=== PATIENT | male | born 1965 | race Caucasian/White ===

== ENCOUNTER 2021-06-11 11:03 | Inpatient (IN) | payer MEDICAID ==
[~2021-06-11] VITALS: Ht 182.9 cm; Wt 64.3 kg
[2021-06-11] MEDS ORDERED: DIVA125T2 PO (11:38)
[2021-06-11] MEDS ORDERED: FLUO20CA36 PO (11:39)
[2021-06-11 12:17] LABS: BASOPHILS % (AUTO) 0.4 % (0.0-2.0); EOSINOPHILS % (AUTO) 0 % (1.0-6.0); HEMOGLOBIN 13.4 g/dL (13.5-17.5); LYMPHOCYTES % (AUTO) 30.3 % (22.0-44.0); MEAN CORPUSCULAR HEMOGLOBIN 30.6 pg (26.0-34.0); MEAN CORPUSCULAR HGB CONC 33.6 G/dL (31.0-37.0); MEAN CORPUSCULAR VOLUME 91 fL (80-100); MONOCYTES # (AUTO) 0.6 K/uL (0.1-1.0); NEUTROPHILS # (AUTO) 4.1 K/uL (1.8-7.7); NEUTROPHILS % (AUTO) 60.3 % (40.0-70.0); PLATELET COUNT (AUTO) 214 K/uL (150-450); RED BLOOD CELL COUNT(AUTO) 4.39 MIL/uL (4.50-5.90); RED CELL DISTRIBUTION WIDTH 14.6 % (11.5-14.5)
[2021-06-11 12:25] LABS: ANION GAP 9 mmol/L (8-16); CALCIUM, TOTAL 8.7 mg/dL (8.8-10.5); CARBON DIOXIDE 30 mmol/L (22-29); CHLORIDE 100 mmol/L (98-107); CREATININE 0.82 mg/dL (0.60-1.30); GLOMERULAR FILTR. RATE CALC > 60 mL/min (>60); GLUCOSE,RANDOM 84 mg/dL (70-110); POTASSIUM 4.1 mmol/L (3.5-5.1); SODIUM SERUM 139 mmol/L (136-145); UREA NITROGEN, BLOOD 19 mg/dL (7-18)
[2021-06-11 12:32] LABS: ACETAMINOPHEN < 2 mcg/mL (10-30); ALANINE AMINOTRANSFERASE 30 U/L (12-78); ALBUMIN 3.7 g/dL (3.4-5.0); ALKALINE PHOSPHATASE 50 U/L (46-116); ASPARTATE AMINOTRANSFERASE 32 U/L (15-37); BILIRUBIN,TOTAL 0.4 mg/dL (0.1-1.0); TOTAL PROTEIN, SERUM 8.2 g/dL (6.4-8.2)
[2021-06-11 12:35] LABS: SALICYLATE 0.7 mg/dL (2.8-20.0)
[2021-06-11] MEDS ORDERED: MAG HYDROX/AL HYDROX/SIMETH ES 30 ML SUSPENSION UDCUP PO PRN (13:00)
[2021-06-11] MEDS ORDERED: HydrOXYzine PAMOATE 50 MG CAPSULE PO PRN (13:00)
[2021-06-11] MEDS ORDERED: ACETAMINOPHEN 325 MG TABLET PO PRN (13:00)
[2021-06-11] MEDS ORDERED: LORazepam 2 MG TABLET PO PRN (13:00)
[2021-06-11] MEDS ORDERED: CYANOCOBALAMIN 1,000 MCG/ML VIAL IM ONE ×2 (13:00→21:15)
[2021-06-11] MEDS ORDERED: GuaiFENesin/D-METHORPHAN [SUGAR-FREE] 200-20MG/10 ML SYRUP UDCUP PO PRN (13:00)
[2021-06-11] MEDS ORDERED: LOPERAMIDE HCL 2 MG CAPSULE PO PRN (13:00)
[2021-06-11] MEDS ORDERED: ZOLPIDEM TARTRATE 10 MG TABLET PO PRN (13:00)
[2021-06-11] MEDS ORDERED: MAGNESIUM HYDROXIDE SUSPENSION 30 ML UDCUP PO PRN (13:00)
[2021-06-11] MEDS ORDERED: OLANZapine 5 MG RAPDIS TABLET PO PRN (13:00)
[2021-06-11] MEDS ORDERED: PROMETHAZINE HCL 25 MG TABLET PO PRN (13:00)
[2021-06-11] MEDS ORDERED: TUBERCULIN, PURIFIED PROTEIN DERIVATIVE 5 TU/0.1 ML SYRINGE ID ONE (13:00)
[2021-06-11 14:23] LABS: COVID AG,FIA SOURCE NASOPHARYNGEAL
[2021-06-11] MEDS ORDERED: DIAZEPAM 10 MG TABLET PO PRN (17:15)
[2021-06-11] MEDS: MELATONIN 5 MG TABLET PO SCH (21:00)
[2021-06-11] MEDS: THIAMINE 100 MG TABLET PO SCH (21:00)
[2021-06-11] MEDS ORDERED: OLANZapine 5 MG RAPDIS TABLET PO SCH (21:00)
[2021-06-12] VITALS (10 sets, daily range): BP systolic 101–148; BP diastolic 60–81
[2021-06-12] MEDS ORDERED: DIAZEPAM 10 MG TABLET PO PRN (07:00)
[2021-06-12 07:29] LABS: CHOL/HDL RATIO 3.7 (4.2-7.3); FREE T4 (FREE THYROXINE) 1.08 ng/dL (0.76-1.46); THYROID STIMULATING HORMONE 0.77 uIU/mL (0.36-3.74)
[2021-06-12] MEDS ORDERED: BuPROPion HCL XL 150 MG ER TABLET PO SCH (09:00)
[2021-06-12] MEDS: FOLIC ACID 1 MG TABLET PO SCH (09:00)
[2021-06-12] MEDS: THIAMINE 100 MG TABLET PO SCH ×2 (09:00→17:04)
[2021-06-12] MEDS: NALTREXONE HCL 50 MG TABLET PO SCH (09:00)
[2021-06-12] MEDS: OMEGA-3/DHA/EPA/FISH OIL 1,000 MG CAPSULE PO SCH (09:00)
[2021-06-12] MEDS: MULTIVITAMINS WITH MINERALS, THERAPEUTIC TABLET PO SCH (09:00)
[2021-06-12] MEDS: DIAZEPAM 10 MG TABLET PO SCH ×3 (09:21→17:05)
[2021-06-12] MEDS: FLUoxetine HCL 20 MG CAPSULE PO SCH (09:22)
[2021-06-12] MEDS: MELATONIN 5 MG TABLET PO SCH (20:58)
[2021-06-12] MEDS ORDERED: LURASIDONE HCL 20 MG TABLET PO PRN (21:00)
[2021-06-12] MEDS ORDERED: DIVALPROEX SODIUM 500 MG ER TABLET PO SCH (21:00)
[2021-06-13] MEDS ORDERED: LURASIDONE HCL 40 MG TABLET PO SCH (07:30)
[2021-06-13] MEDS: MULTIVITAMINS WITH MINERALS, THERAPEUTIC TABLET PO SCH (09:00)
[2021-06-13] MEDS: OMEGA-3/DHA/EPA/FISH OIL 1,000 MG CAPSULE PO SCH (09:00)
[2021-06-13] MEDS: FLUoxetine HCL 20 MG CAPSULE PO SCH (09:00)
[2021-06-13] MEDS: THIAMINE 100 MG TABLET PO SCH ×2 (09:00→17:19)
[2021-06-13] MEDS: FOLIC ACID 1 MG TABLET PO SCH (09:00)
[2021-06-13] MEDS: NALTREXONE HCL 50 MG TABLET PO SCH (09:00)
[2021-06-13] MEDS: MELATONIN 5 MG TABLET PO SCH (20:59)
[2021-06-13] MEDS ORDERED: DIVALPROEX SODIUM 500 MG ER TABLET PO SCH (21:00)
[2021-06-14] MEDS ORDERED: DIAZEPAM 5 MG TABLET PO PRN (07:00)
[2021-06-14] MEDS ORDERED: LURASIDONE HCL 80 MG TABLET PO SCH ×2 (07:30→21:00)
[2021-06-14] MEDS ORDERED: DIAZEPAM 5 MG TABLET PO SCH (09:00)
[2021-06-14] MEDS: FOLIC ACID 1 MG TABLET PO SCH (09:00)
[2021-06-14] MEDS: FLUoxetine HCL 20 MG CAPSULE PO SCH (09:00)
[2021-06-14] MEDS: NALTREXONE HCL 50 MG TABLET PO SCH (09:00)
[2021-06-14] MEDS: THIAMINE 100 MG TABLET PO SCH ×2 (09:00→17:20)
[2021-06-14] MEDS ORDERED: DIVALPROEX SODIUM 500 MG ER TABLET PO SCH (09:00)
[2021-06-14] MEDS: OMEGA-3/DHA/EPA/FISH OIL 1,000 MG CAPSULE PO SCH (09:00)
[2021-06-14] MEDS: MULTIVITAMINS WITH MINERALS, THERAPEUTIC TABLET PO SCH (09:00)
[2021-06-14 16:08] VITALS: BP 121/79
[2021-06-14] MEDS: MELATONIN 5 MG TABLET PO SCH (20:55)
[2021-06-14] MEDS: LURASIDONE HCL 80 MG TABLET PO SCH (20:55)
[2021-06-15] MEDS: DIVALPROEX SODIUM 500 MG ER TABLET PO SCH ×3 (06:46→16:32)
[2021-06-15] MEDS ORDERED: DIAZEPAM 5 MG TABLET PO PRN (07:00)
[2021-06-15] MEDS: NALTREXONE HCL 50 MG TABLET PO SCH (09:00)
[2021-06-15] MEDS: FLUoxetine HCL 20 MG CAPSULE PO SCH (09:00)
[2021-06-15] MEDS: FOLIC ACID 1 MG TABLET PO SCH (09:00)
[2021-06-15] MEDS: MULTIVITAMINS WITH MINERALS, THERAPEUTIC TABLET PO SCH (09:00)
[2021-06-15] MEDS: OMEGA-3/DHA/EPA/FISH OIL 1,000 MG CAPSULE PO SCH (09:00)
[2021-06-15] MEDS: THIAMINE 100 MG TABLET PO SCH ×2 (09:00→16:32)
[2021-06-15] MEDS: LURASIDONE HCL 80 MG TABLET PO SCH (18:00)
[2021-06-15] MEDS: MELATONIN 5 MG TABLET PO SCH (20:33)
[2021-06-16] MEDS: DIVALPROEX SODIUM 500 MG ER TABLET PO SCH ×3 (07:00→16:05)
[2021-06-16] MEDS: NALTREXONE HCL 50 MG TABLET PO SCH (09:00)
[2021-06-16] MEDS: FLUoxetine HCL 20 MG CAPSULE PO SCH (09:00)
[2021-06-16] MEDS: THIAMINE 100 MG TABLET PO SCH ×3 (09:00→17:00)
[2021-06-16] MEDS: MULTIVITAMINS WITH MINERALS, THERAPEUTIC TABLET PO SCH (09:00)
[2021-06-16] MEDS: OMEGA-3/DHA/EPA/FISH OIL 1,000 MG CAPSULE PO SCH (09:00)
[2021-06-16] MEDS: FOLIC ACID 1 MG TABLET PO SCH (09:00)
[2021-06-16] MEDS: LURASIDONE HCL 80 MG TABLET PO SCH (16:05)
[2021-06-16] MEDS: MELATONIN 5 MG TABLET PO SCH (20:50)
[2021-06-17] MEDS: DIVALPROEX SODIUM 500 MG ER TABLET PO SCH ×3 (06:48→17:00)
[2021-06-17] MEDS: OMEGA-3/DHA/EPA/FISH OIL 1,000 MG CAPSULE PO SCH (09:00)
[2021-06-17] MEDS: FLUoxetine HCL 20 MG CAPSULE PO SCH (09:00)
[2021-06-17] MEDS: NALTREXONE HCL 50 MG TABLET PO SCH (09:00)
[2021-06-17] MEDS: THIAMINE 100 MG TABLET PO SCH ×2 (09:00→17:00)
[2021-06-17] MEDS: FOLIC ACID 1 MG TABLET PO SCH (09:00)
[2021-06-17] MEDS: MULTIVITAMINS WITH MINERALS, THERAPEUTIC TABLET PO SCH (09:00)
[2021-06-17] MEDS: LURASIDONE HCL 80 MG TABLET PO SCH (18:00)
[2021-06-17] MEDS: MELATONIN 5 MG TABLET PO SCH (21:00)
[2021-06-18] MEDS: DIVALPROEX SODIUM 500 MG ER TABLET PO SCH ×3 (06:34→17:00)
[2021-06-18] MEDS: FOLIC ACID 1 MG TABLET PO SCH (09:00)
[2021-06-18] MEDS: THIAMINE 100 MG TABLET PO SCH ×2 (09:00→17:00)
[2021-06-18] MEDS: NALTREXONE HCL 50 MG TABLET PO SCH (09:00)
[2021-06-18] MEDS: MULTIVITAMINS WITH MINERALS, THERAPEUTIC TABLET PO SCH (09:00)
[2021-06-18] MEDS: FLUoxetine HCL 20 MG CAPSULE PO SCH (09:00)
[2021-06-18] MEDS: OMEGA-3/DHA/EPA/FISH OIL 1,000 MG CAPSULE PO SCH (09:00)
[2021-06-18] MEDS: LURASIDONE HCL 80 MG TABLET PO SCH (18:00)
[2021-06-18] MEDS: MELATONIN 5 MG TABLET PO SCH (21:00)
[2021-06-19] MEDS: DIVALPROEX SODIUM 500 MG ER TABLET PO SCH ×3 (06:41→16:44)
[2021-06-19] MEDS: FOLIC ACID 1 MG TABLET PO SCH (09:00)
[2021-06-19] MEDS: OMEGA-3/DHA/EPA/FISH OIL 1,000 MG CAPSULE PO SCH (09:00)
[2021-06-19] MEDS: MULTIVITAMINS WITH MINERALS, THERAPEUTIC TABLET PO SCH (09:00)
[2021-06-19] MEDS: THIAMINE 100 MG TABLET PO SCH ×2 (09:00→16:44)
[2021-06-19] MEDS: FLUoxetine HCL 20 MG CAPSULE PO SCH (09:00)
[2021-06-19] MEDS: NALTREXONE HCL 50 MG TABLET PO SCH (09:00)
[2021-06-19 10:53] VITALS: BP 104/65
[2021-06-19] MEDS: LURASIDONE HCL 80 MG TABLET PO SCH (16:44)
[2021-06-19] MEDS: MELATONIN 5 MG TABLET PO SCH (20:43)
[2021-06-20] MEDS: DIVALPROEX SODIUM 500 MG ER TABLET PO SCH ×3 (07:00→16:47)
[2021-06-20] MEDS: FOLIC ACID 1 MG TABLET PO SCH (09:00)
[2021-06-20] MEDS: OMEGA-3/DHA/EPA/FISH OIL 1,000 MG CAPSULE PO SCH (09:00)
[2021-06-20] MEDS: FLUoxetine HCL 20 MG CAPSULE PO SCH (09:00)
[2021-06-20] MEDS: THIAMINE 100 MG TABLET PO SCH ×2 (09:00→16:46)
[2021-06-20] MEDS: MULTIVITAMINS WITH MINERALS, THERAPEUTIC TABLET PO SCH (09:00)
[2021-06-20] MEDS: NALTREXONE HCL 50 MG TABLET PO SCH (09:00)
[2021-06-20] MEDS: LURASIDONE HCL 80 MG TABLET PO SCH (17:01)
[2021-06-20] MEDS: MELATONIN 5 MG TABLET PO SCH (20:14)
[2021-06-21] MEDS: DIVALPROEX SODIUM 500 MG ER TABLET PO SCH ×2 (06:28→12:00)
[2021-06-21] MEDS: MULTIVITAMINS WITH MINERALS, THERAPEUTIC TABLET PO SCH (09:00)
[2021-06-21] MEDS: FOLIC ACID 1 MG TABLET PO SCH (09:00)
[2021-06-21] MEDS: FLUoxetine HCL 20 MG CAPSULE PO SCH (09:00)
[2021-06-21] MEDS: THIAMINE 100 MG TABLET PO SCH (09:00)
[2021-06-21] MEDS: NALTREXONE HCL 50 MG TABLET PO SCH (09:00)
[2021-06-21] MEDS: OMEGA-3/DHA/EPA/FISH OIL 1,000 MG CAPSULE PO SCH (09:00)
== END 2021-06-21 15:15 | disposition home or self-care (01) | DRG 750 ==
LOC: EMS 11:06 → 3EX 12:54
PROVIDERS: ADMIT Psychiatry & Neurology Psychiatry; ATTEND Psychiatry & Neurology Psychiatry
DX: F25.0 Schizoaffective disorder, bipolar type (principal); R45.851 Suicidal ideations; Z59.0 Homelessness; Z20.822 Contact with and (suspected) exposure to COVID-19; J44.9 Chronic obstructive pulmonary disease, unspecified; F17.210 Nicotine dependence, cigarettes, uncomplicated; F12.90 Cannabis use, unspecified, uncomplicated; F14.90 Cocaine use, unspecified, uncomplicated; R73.03 Prediabetes; D64.9 Anemia, unspecified; F19.10 Other psychoactive substance abuse, uncomplicated; Z91.19 Patient's noncompliance with other medical treatment and regimen; F10.10 Alcohol abuse, uncomplicated; Y90.9 Presence of alcohol in blood, level not specified; Z91.14 Patient's other noncompliance with medication regimen
CPT/HCPCS: 80053; 80061; 83036; 84439; 84443; 85025; 86592; 93005; 99285; A9575; G0378; G0480; G0481